=== PATIENT | female | born 1950 | race Caucasian/White ===

== ENCOUNTER → 2016-10-02 | Outpatient (CLI) | payer BC ==
[~2016-10-02] MED LIST: NEXIUM PO
--- NOTE | ~2016-10-02 | CR170 ---
[facility] A Service [facility] RADIOLOGY TEXT RESULTS PATIENT: MATHEW COOK LOCATION: [facility] : 52 UNIT #: [id number] AGE: [address]: Berto Oviedo MD SEX: F ORDER DR: [id number] [place] [id number] O MR#: [id number] Acc #: [id number] NAME: MATHEW COOK : 1950 SEX: F STUDY DATE/TIME: 10/02/2016 10:45 [facility] ROOM: STUDY DESCRIPTION: CR Knee 2 Views Rt Attending Physician: Berto Oviedo M.D. Referring Physician: Berto Oviedo M.D. Ordering Physician: Berto Oviedo M.D. Primary Care Physician: Jeaneth Archer A.P.R.N. MEDICAL IMAGING REPORT This report is preliminary unless electronic signature is present. EXAM Right knee 10/02/2016. HISTORY 65-year-old female with right knee pain and swelling for 1 month. No specific injury. COMPARISON None. FINDINGS 2 views of the right knee demonstrate no acute fracture or dislocation. Trace joint effusion. Joint spaces appear normally maintained. Soft tissues are unremarkable. IMPRESSION 1. No acute fracture or dislocation. 2. Suspected trace right knee effusion, nonspecific. If clinical symptoms persist, consider further evaluation with right knee MRI. Dictated by... Malick Elizabeth M.D. THIS IS AN ELECTRONICALLY VERIFIED REPORT Malick Elizabeth M.D. at 10/03/2016 2:29 PM RONNI/judy TD: 10/03/2016 12:16 JOB #: [id number] [facility] A [facility] RADIOLOGY TEXT RESULTS PATIENT: MATHEW COOK LOCATION: [facility] : 52 UNIT #: [id number] AGE: [address]: Berto Oviedo MD SEX: F ORDER DR: MEDICAL IMAGING REPORT Page 1 of 1
== END | disposition home or self-care (01) ==
LOC: SRAD 10:41
DX: M25.461 Effusion, right knee (principal); M25.561 Pain in right knee
CPT/HCPCS: 73560